=== PATIENT | male | born 1955 | race Caucasian/White ===

== ENCOUNTER 2018-07-25 10:30 | Emergency (ER) | payer OTHER ==
[~2018-07-25] VITALS: Ht 175.3 cm; Wt 136.1 kg
[~2018-07-25 10:30] MED LIST: AVALIDE 150-12.1 TA1 PO; GILTUSS TR TAB1 EACH PO; HYDRALAZINE HCL25 MG; HYZAAR 100-251 EACH; LASIX20 MG; LOSARTAN-HCTZ1 EAC2; MONTELUKAST SOD10 MG; RANEXA500 MG; TAMS0.4C; TIAZAC420 MG; ZYRTEC10 MG PO; [UNRECOGNIZED DRUG - REMARK]
== END 2018-07-25 22:48 | disposition home or self-care (01) ==
LOC: ER 10:30
DX: K52.89 Other specified noninfective gastroenteritis and colitis (principal); K80.80 Other cholelithiasis without obstruction; E87.6 Hypokalemia

== ENCOUNTER 2018-08-29 14:54 | Outpatient (CLI) | payer OTHER | END 2018-08-29 15:28 | disposition home or self-care (01) | LOC: RAD 14:54 | DX: M19.90 Unspecified osteoarthritis, unspecified site (principal) ==

== ENCOUNTER 2018-09-27 10:18 | Outpatient (CLI) | payer OTHER | END 2018-09-27 10:28 | disposition home or self-care (01) | LOC: SONOGRAMA 10:18 | DX: N20.0 Calculus of kidney (principal); N40.0 Benign prostatic hyperplasia without lower urinary tract symptoms ==

== ENCOUNTER 2018-10-19 12:49 | Inpatient (IN) | payer OTHER ==
[~2018-10-19] VITALS: Ht 175.3 cm; Wt 138.3 kg
[2018-10-19] MEDS ORDERED: ISOSORBIDE MONO30 MG (14:12)
[2018-10-19] MEDS ORDERED: TAMS0.4C (14:15)
[2018-10-19] MEDS ORDERED: TERAZOSIN HCL2 M1 (14:15)
--- NOTE | 2018-10-19 14:16 | NUR ---
PTE INDICA DOLOR EN CUERPO GENERAL ESPECIALMENTE ESPALDA BAJA. PTE INDICA FIEBRE Y DIFCULTAD AL RESPIRAR. PTE ALERTA CONSCIENTE Y ORIENTADO X3
--- NOTE | 2018-10-19 15:36 | NUR ---
PT ALERTA Y ORIENTADO X3 ESFERAS SE LE ORIENTA SOBRE TX Y REFIERE ENTEDER. SE VELASQUEZ MUESTRAS DE MONTY Y VENOPUNCION CON TECNICAS ASEPTICAS. SE ADMINISTRAN MEDICAMENTOS ORDENDOS. PT TOLERA TX.
--- NOTE | 2018-10-19 23:14 | NUR ---
PACIENTE ALERTA Y ORIENTADO EN SOTERO JEAN-PAUL ESFERAS, PRESENTA BUEN PATRON RESPIRATORIO Y SUSANNA DE DOLOR. CANALIZADO EN BRAZO LT PATENTE Y SUSANNA DE S/S DE FLEBITIS E INFILTRACION. RECIBIENDO 0.9% NSS A 50 ML/HR. PENDIENTE COLECTAR MUESTRA DE MONTY PARA CBC A LAS 6:00AM, PENDIENTE EVALUACION MEDICINA INTERNA CON DR ALCOCER POR BKP Y BACTEREMIA.
--- NOTE | 2018-10-19 23:56 | NUR ---
SE LE ADMINISTRA MEDICAMENTOS JEAN-PIERRE ORDENADOS.
--- NOTE | 2018-10-20 07:09 | NUR ---
SE RECIBE PACIENTE ALERTA EN CONSULTA CON EL SEOBSERVA CON IVF PATENTE SUSANNA DE ANASTASIA Y SE MANTIEIEN OBSERVACION PO RCAMBIOS EN CARTER CONDICON.
== END 2018-10-25 09:12 | disposition home or self-care (01) | DRG 603 ==
LOC: ER 12:49 → MEDJ 10-20 07:24
PROVIDERS: ADMIT Internal Medicine Cardiovascular Disease
DX: L03.116 Cellulitis of left lower limb (principal); J44.1 Chronic obstructive pulmonary disease with (acute) exacerbation; K25.3 Acute gastric ulcer without hemorrhage or perforation; I82.4Z2 Acute embolism and thrombosis of unspecified deep veins of left distal lower extremity; K80.00 Calculus of gallbladder with acute cholecystitis without obstruction; D72.828 Other elevated white blood cell count; J45.40 Moderate persistent asthma, uncomplicated; E66.09 Other obesity due to excess calories; R33.8 Other retention of urine; Z88.0 Allergy status to penicillin; Z88.6 Allergy status to analgesic agent; I12.9 Hypertensive chronic kidney disease with stage 1 through stage 4 chronic kidney disease, or unspecified chronic kidney disease; N18.2 Chronic kidney disease, stage 2 (mild)

== ENCOUNTER 2018-11-06 22:08 | Inpatient (IN) | payer OTHER ==
[~2018-11-06] VITALS: Ht 175.3 cm; Wt 172.4 kg
[~2018-11-06 22:08] MED LIST changes: +ISOSORBIDE MONO30 MG; +TERAZOSIN HCL2 M1
== END 2018-11-18 18:43 | disposition home or self-care (01) | DRG 603 ==
LOC: ER 22:08 → MEDJ 11-07 06:20 → SEC-K 11-07 06:20 → MEDJ 11-07 08:22
PROVIDERS: ADMIT Internal Medicine Cardiovascular Disease
PROC: 3E0F7GC Introduction of Other Therapeutic Substance into Respiratory Tract, Via Natural or Artificial Opening (ICD-10-PCS; 2018-11-07)
PROC: B54DZZZ Ultrasonography of Bilateral Lower Extremity Veins (ICD-10-PCS; principal; 2018-11-12)
DX: L03.116 Cellulitis of left lower limb (principal); J44.1 Chronic obstructive pulmonary disease with (acute) exacerbation; K80.00 Calculus of gallbladder with acute cholecystitis without obstruction; J45.31 Mild persistent asthma with (acute) exacerbation; I82.813 Embolism and thrombosis of superficial veins of lower extremities, bilateral; I10 Essential (primary) hypertension; G47.33 Obstructive sleep apnea (adult) (pediatric); E87.6 Hypokalemia; E66.09 Other obesity due to excess calories; R33.8 Other retention of urine; Z88.0 Allergy status to penicillin; Z88.6 Allergy status to analgesic agent

== ENCOUNTER 2019-02-28 09:41 | Outpatient (CLI) | payer OTHER | END 2019-02-28 09:43 | disposition home or self-care (01) | LOC: TOM 09:41 | DX: K56.50 Intestinal adhesions [bands], unspecified as to partial versus complete obstruction (principal) ==

== ENCOUNTER 2019-05-16 08:45 | Outpatient (CLI) | payer OTHER | END 2019-05-16 09:01 | disposition home or self-care (01) | LOC: TOM 08:45 | DX: R31.29 Other microscopic hematuria (principal) | CPT/HCPCS: 74178; Q9965 ==

== ENCOUNTER 2020-03-22 22:35 | Emergency (ER) | payer OTHER ==
[~2020-03-22] VITALS: Ht 175.3 cm; Wt 145.1 kg
[2020-03-23] MEDS ORDERED: BACTRIM DS TAB1 EACH PO (10:31)
[2020-03-23] MEDS ORDERED: MORGIDOX100 MG PO (10:31)
== END 2020-03-23 10:41 | disposition home or self-care (01) ==
LOC: ER 22:35
DX: R06.02 Shortness of breath (principal); B34.9 Viral infection, unspecified; Z20.828 Contact with and (suspected) exposure to other viral communicable diseases; B95.1 Streptococcus, group B, as the cause of diseases classified elsewhere

== ENCOUNTER 2020-03-28 12:16 | Emergency (ER) | payer OTHER ==
[~2020-03-28] VITALS: Ht 175.3 cm; Wt 145.1 kg
[~2020-03-28 12:16] MED LIST changes: +BACTRIM DS TAB1 EACH PO; +MORGIDOX100 MG PO
== END 2020-03-28 17:34 | disposition home or self-care (01) ==
LOC: ER 12:16
DX: L03.115 Cellulitis of right lower limb (principal); J45.998 Other asthma

== ENCOUNTER 2020-04-12 15:10 | Inpatient (IN) | payer OTHER ==
[~2020-04-12] VITALS: Ht 175.3 cm; Wt 145.1 kg
== END 2020-04-21 08:16 | disposition home or self-care (01) | DRG 603 ==
LOC: ER 15:10 → MEDI 20:49
PROVIDERS: ADMIT Internal Medicine Cardiovascular Disease; ATTEND Internal Medicine Cardiovascular Disease
PROC: C710YZZ Planar Nuclear Medicine Imaging of Bone Marrow using Other Radionuclide (ICD-10-PCS; principal; 2020-04-13)
PROC: 3E0F7GC Introduction of Other Therapeutic Substance into Respiratory Tract, Via Natural or Artificial Opening (ICD-10-PCS; 2020-04-16)
PROC: 3E0F7SF Introduction of Other Gas into Respiratory Tract, Via Natural or Artificial Opening (ICD-10-PCS; 2020-04-17)
DX: L03.115 Cellulitis of right lower limb (principal); J45.31 Mild persistent asthma with (acute) exacerbation; I11.9 Hypertensive heart disease without heart failure; E66.01 Morbid (severe) obesity due to excess calories; Z20.822 Contact with and (suspected) exposure to COVID-19; L97.529 Non-pressure chronic ulcer of other part of left foot with unspecified severity; I89.0 Lymphedema, not elsewhere classified; B96.29 Other Escherichia coli [E. coli] as the cause of diseases classified elsewhere; B96.5 Pseudomonas (aeruginosa) (mallei) (pseudomallei) as the cause of diseases classified elsewhere; G47.33 Obstructive sleep apnea (adult) (pediatric)

== ENCOUNTER 2024-04-03 12:04 | Emergency (ER) | payer OTHER ==
[~2024-04-03] VITALS: Ht 175.3 cm; Wt 131.5 kg
[2024-04-03] MEDS ORDERED: CIPROFLOXACIN IN 5 % DEXTROSE 400 MG/200 ML PIGGYBAG IV ONE ×2 (13:30→13:58)
[2024-04-03 14:35] LABS: URINE APPEARANCE Cloudy; URINE BILIRRUBIN Small (NEGATIVE); URINE BLOOD Negative; URINE COLOR Dark Yellow; URINE GLUCOSE Negative (NEGATIVE); URINE KETONE 15 (NEGATIVE); URINE LEUKOCYTE Negative; URINE NITRATE Negative
[2024-04-03 14:36] LABS: URINE EPITHELIAL CELLS 6.7 uL (0.0-38.8); URINE WBC 6.9 uL (0.0-23.2)
[2024-04-03 14:41] LABS: URINE CAST 0.29 uL (0.0-1.40); URINE PROTEIN 300 (NEGATIVE)
[2024-04-03 14:45] LABS: HEMATOCRIT 44.1 % (39.0-48.0); HEMOGLOBIN 15.3 g/dL (13-16.00); MEAN CELL VOLUME 89.3 fL (80.0-100.00); MEAN CORPUSCULAR HGB CONC 34.7 g/dl (32.0-36.0); RED BLOOD COUNT 4.94 M/uL (4.00-6.00); RED CELL DISTRIBUTION WIDTH 14.4 % (11.5-14.5)
[2024-04-03 14:46] LABS: PLATELET COUNT 82 K/uL (150-450)
[2024-04-03 14:54] LABS: CALCIUM 8.5 mg/dL (8.5-10.1); CREATININE SERUM 0.94 mg/dL (0.70-1.30); GFR 79.81; POTASSIUM 3.66 mEq/L (3.5-5.1)
== END 2024-04-03 16:32 | disposition home or self-care (01) ==
LOC: ER 12:06
PROVIDERS: Emergency Medicine
DX: L03.90 Cellulitis, unspecified (principal); A90 Dengue fever [classical dengue]; Z88.0 Allergy status to penicillin; Z88.6 Allergy status to analgesic agent

== ENCOUNTER 2024-09-24 10:29 | Outpatient (CLI) | payer OTHER | END 2024-09-24 10:33 | disposition home or self-care (01) | LOC: SONOGRAMA 10:29 | PROVIDERS: ATTEND Internal Medicine Cardiovascular Disease | DX: M12.9 Arthropathy, unspecified (principal) ==